=== PATIENT | female | born 1970 | race Caucasian/White ===

== ENCOUNTER 2016-11-08 21:58 | Emergency (ER) | payer BC ==
[~2016-11-08] VITALS: Ht 162.6 cm; Wt 101.6 kg
[2016-11-08] MEDS ORDERED: SODIUM CHLORIDE 0.9% 1,000 ML IV ONE (22:23)
[2016-11-08] MEDS ORDERED: SODIUM CHLORIDE FLUSH 10ML SYR IVF ONE (22:30)
[2016-11-08] MEDS ORDERED: ONDANSETRON 2MG/ML, 2ML IVPush ONE (22:30)
[2016-11-08 22:57] LABS: ASPARTATE AMINO TRANSFERASE 34 U/L (15-37); BLOOD UREA NITROGEN 16 mg/dL (7-18)
[2016-11-08] MEDS ORDERED: ONDANSETRON 2MG/ML, 2ML ONE (22:59)
[2016-11-08] MEDS ORDERED: HYDROmorphone 1 MG/ML, 1ML ONE (22:59)
[2016-11-08] MEDS: HYDROmorphone 1 MG/ML, 1ML IVPush PRN (23:16)
[2016-11-09] MEDS ORDERED: HYDROmorphone 1 MG/ML, 1ML ONE (00:26)
[2016-11-09] MEDS: HYDROmorphone 1 MG/ML, 1ML IVPush PRN (00:29)
[2016-11-09] MEDS ORDERED: ESCI20TA10 PO (00:31)
[2016-11-09] MEDS ORDERED: OMEP40CA6 PO (00:34)
[2016-11-09] MEDS ORDERED: methylPREDNISolone SOD SUCC 125 MG/2 ML ONE (01:20)
[2016-11-09] MEDS ORDERED: DIPHENHYDRAMINE 50 MG/ML, 1ML ONE (01:20)
[2016-11-09] MEDS ORDERED: methylPREDNISolone SOD SUCC 125 MG/2 ML IVPush ONE (01:30)
[2016-11-09] MEDS ORDERED: DIPHENHYDRAMINE 50 MG/ML, 1ML IVPush ONE (01:30)
[2016-11-09] MEDS ORDERED: OMNIPAQUE 350 MG/ML, 100ML BOTTLE ONE (01:47)
[2016-11-09 02:15] VITALS: BP 151/89
== END 2016-11-09 02:19 | disposition home or self-care (01) ==
LOC: ED 23:59
DX: K52.9 Noninfective gastroenteritis and colitis, unspecified (principal); E11.65 Type 2 diabetes mellitus with hyperglycemia; Z90.49 Acquired absence of other specified parts of digestive tract; Z90.710 Acquired absence of both cervix and uterus
CPT/HCPCS: 36415; 74022; 74177; 76700; 80053; 81001; 82010; 83605; 83690; 85025; 96361; 96374; 96375; 96376; 99285; J1170; J1200; J2405; J2930; J7030; Q9967